=== PATIENT | female | born 1990 | race Caucasian/White ===

== ENCOUNTER 2016-09-21 07:09 | Emergency (ER) | payer MEDICAID, MEDICARE ==
[~2016-09-21] VITALS: Ht 162.6 cm; Wt 117.5 kg
[2016-09-21 07:18] VITALS: BP 137/77
--- NOTE | 2016-09-21 07:25 | NUR ---
PT TAKEN TO BED 8
--- NOTE | 2016-09-21 07:27 | NUR ---
LAB AT BEDSIDE.
--- NOTE | 2016-09-21 07:28 | NUR ---
25/F C/O VAGINAL BLEEDING X 5 DAYS. PT STATED PT HAS 5 WKS 2DAYS; DENIES ANY PAIN,SPOT PINK BLEEDING PER VAGINA TODAY. DENIES ANY MEDICAL HX. DENIES N/V/D; SKIN IS PINK/WARM/DRY; AAOX4 WITH EVEN AND STEADY GAIT; LUNGS CLEAR BL; HR EVEN AND REGULAR; PT DENIES ANY FEVER, CP, SOB, OR COUGH AT THIS TIME; PATIENT STATES PAIN OF 0/10 AT THIS TIME; VSS; PATIENT POSITIONED FOR COMFORT; HOB ELEVATED; BEDRAILS UP X2; BED DOWN. ER MD MADE AWARE OF PT STATUS. PRENANCY TEST NEGATIVE . NOTIFIED DR LOWRY.
--- NOTE | 2016-09-21 07:31 | NUR ---
25/F C/O VAGINAL BLEEDING X 5 DAYS. PT DENIES PT 5 WKS 2DAYS; DENIES ANY PAIN,SPOT PINK BLEEDING PER VAGINA TODAY.ANY MEDICAL HX.DENIES N/V/D; SKIN IS PINK/WARM/DRY; AAOX4 WITH EVEN AND STEADY GAIT; LUNGS CLEAR BL; HR EVEN AND REGULAR; PT DENIES ANY FEVER, CP, SOB, OR COUGH AT THIS TIME; PATIENT STATES PAIN OF 0/10 AT THIS TIME; VSS; PATIENT POSITIONED FOR COMFORT; HOB ELEVATED; BEDRAILS UP X2; BED DOWN. ER MADE AWARE OF PT STATUS. PRENANCY TEST NEGATIVE . NOTIFIED DR LOWRY.
--- NOTE | 2016-09-21 07:44 | NUR ---
PT TAKEN TO US VIA W/C ACCOMPANIED BY [employer].
[2016-09-21 07:45] LABS: BASOPHILS # (AUTO) 0.3 K/uL (0.00-0.22); BASOPHILS % (AUTO) 2.8 % (0.0-2.0); EOSINOPHILS # (AUTO) 0.1 K/uL (0-0.4); EOSINOPHILS % (AUTO) 0.5 % (0.0-4.0); HEMATOCRIT 37.2 % (36-48); HEMOGLOBIN 11.9 g/dL (12.0-16.0); LYMPHOCYTES # (AUTO) 2.6 K/uL (2.5-16.5); LYMPHOCYTES % (AUTO) 24.8 % (20.5-51.1); MEAN CORPUSCULAR HEMOGLOBIN 28 pg (27-31); MEAN CORPUSCULAR HGB CONC 32 g/dL (33-37); MEAN CORPUSCULAR VOLUME 89 fL (80-94); MONOCYTES # (AUTO) 0.5 K/uL (0.8-1.0); MONOCYTES % (AUTO) 4.4 % (1.7-9.3); NEUTROPHILS # (AUTO) 6.9 K/uL (1.8-7.7); NEUTROPHILS % (AUTO) 67.5 % (42.2-75.2); PLATELET COUNT (AUTO) 330 K/uL (140-450); RED BLOOD CELL COUNT(AUTO) 4.19 MIL/uL (4.20-5.40); RED CELL DISTRIBUTION WIDTH 14.1 % (11.6-13.7); WHITE BLOOD COUNT (AUTO) 10.4 K/uL (4.8-10.8)
[2016-09-21 07:54] LABS: BILIRUBIN,URINE NEGATIVE (NEGATIVE); BLOOD, URINE 2+ (NEGATIVE); COLOR,URINE YELLOW (YELLOW); LEUKOCYTE ESTERASE ,URINE NEGATIVE (NEGATIVE); NITRITE, URINE NEGATIVE (NEGATIVE); PROTEIN,URINE NEGATIVE (NEGATIVE); UGLUCOSE NEGATIVE (NEGATIVE); UROBILINOGEN,URINE 0.2 EU/dL (0.2 - 1)
[2016-09-21 07:57] LABS: ANION GAP 10.8 (8-16); CALCIUM 8.7 mg/dL (8.5-10.1); CARBON DIOXIDE 28.6 mmol/L (21-32); CREATININE 0.7 mg/dL (0.6-1.3); POTASSIUM 4.4 mmol/L (3.5-5.1)
[2016-09-21 07:58] LABS: APPEARANCE,URINE SLIGHTLY HAZY (CLEAR)
[2016-09-21 08:01] LABS: PARTIAL THROMBOPLASTIN TIME 27.9 secs (22-35.6); PROTHROMBIN TIME 10.4 secs (10.8-13.4); WBC,URINE 0-2 /HPF (0-5)
[2016-09-21 08:02] LABS: BACTERIA,URINE OCCASSIONAL /HPF (None Seen); SQUAMOUS EPITHELIAL CELL,UR 0-2 /LPF (0-3 (FEW))
[2016-09-21 08:03] LABS: ALBUMIN 3.6 g/dL (3.4-5.0); TOTAL BILIRUBIN 0.2 mg/dL (0.0-1.0); TOTAL PROTEIN, SERUM 8.7 g/dL (6.4-8.2)
--- NOTE | 2016-09-21 08:11 | NUR ---
PT BACK FROM US
--- NOTE | 2016-09-21 08:16 | NUR ---
Juan morgan in ED - 09/21/16 at 0817 by [email or web address] PT HAD BREAKFAST; NO N/V NOTED AT THIS TIME.
--- NOTE | 2016-09-21 08:16 | NUR ---
Patient appears to be resting comfortably in bed. BP 132/74; DENIES ANY HEADACHE OR DIZINESS AT THIS TIME. Respirations even and unlabored.WILL CONTINUE TO MONITOR.
--- NOTE | 2016-09-21 08:50 | NUR ---
ER MD DR LOWRY REEVALUATING PT AT BEDSIDE.
[2016-09-21 10:27] VITALS: BP 121/62
--- NOTE | 2016-09-21 10:29 | NUR ---
Patient discharged with v/s stable. Written and verbal after care instructions given and explained. Patient alert, oriented and verbalized understanding of instructions. Ambulatory with steady gait. All questions addressed prior to discharge. ID band removed. Patient advised to follow up with PMD. Rx of MATERNAL VIT LOW IRON TABLET given. Patient educated on indication of medication including possible reaction and side effects. Opportunity to ask questions provided and answered.
== END 2016-09-21 10:29 | disposition home or self-care (01) ==
LOC: MED 07:09
DX: N93.9 Abnormal uterine and vaginal bleeding, unspecified (principal); N88.8 Other specified noninflammatory disorders of cervix uteri
CPT/HCPCS: 36415; 76830; 80053; 81001; 81025; 84702; 85025; 85610; 85730; 86900; 86901; 99285; Q0092

== ENCOUNTER 2016-10-01 03:15 | Emergency (ER) | payer MEDICAID ==
[~2016-10-01] VITALS: Ht 162.6 cm; Wt 113.4 kg
[2016-10-01 03:21] VITALS: BP 128/72
--- NOTE | 2016-10-01 03:24 | NUR ---
PT TAKEN TO BED 3
--- NOTE | 2016-10-01 03:32 | NUR ---
Dr. Ramos re-evaluating patient at bedside.
--- NOTE | 2016-10-01 03:33 | NUR ---
PATIENT PRESENTS TO ED FOR BLOOD WORK . PT DENIES N/V/D; SKIN IS PINK/WARM/DRY; AAOX4 WITH EVEN AND STEADY GAIT; LUNGS CLEAR BL; HR EVEN AND REGULAR; PT DENIES ANY FEVER, CP, SOB, OR COUGH AT THIS TIME; PATIENT STATES PAIN OF 0/10 AT THIS TIME; VSS; PATIENT POSITIONED FOR COMFORT; HOB ELEVATED; BEDRAILS UP X2; BED DOWN. ER MD MADE AWARE OF PT STATUS.
--- NOTE | 2016-10-01 03:40 | NUR ---
[facility] AT BEDSIDE FOR LAB DRAWS
[2016-10-01 03:55] LABS: BASOPHILS # (AUTO) 0.4 K/uL (0.00-0.22); BASOPHILS % (AUTO) 3.6 % (0.0-2.0); EOSINOPHILS # (AUTO) 0.3 K/uL (0-0.4); EOSINOPHILS % (AUTO) 2.5 % (0.0-4.0); HEMATOCRIT 38.6 % (36-48); HEMOGLOBIN 12.2 g/dL (12.0-16.0); LYMPHOCYTES # (AUTO) 3.4 K/uL (2.5-16.5); LYMPHOCYTES % (AUTO) 32.8 % (20.5-51.1); MEAN CORPUSCULAR HEMOGLOBIN 28 pg (27-31); MEAN CORPUSCULAR HGB CONC 32 g/dL (33-37); MEAN CORPUSCULAR VOLUME 89 fL (80-94); MONOCYTES # (AUTO) 0.7 K/uL (0.8-1.0); MONOCYTES % (AUTO) 6.7 % (1.7-9.3); NEUTROPHILS # (AUTO) 5.4 K/uL (1.8-7.7); NEUTROPHILS % (AUTO) 54.4 % (42.2-75.2); PLATELET COUNT (AUTO) 345 K/uL (140-450); RED BLOOD CELL COUNT(AUTO) 4.31 MIL/uL (4.20-5.40); RED CELL DISTRIBUTION WIDTH 14.2 % (11.6-13.7); WHITE BLOOD COUNT (AUTO) 10.2 K/uL (4.8-10.8)
[2016-10-01 03:57] LABS: ANION GAP 11.3 (8-16); CALCIUM 8.4 mg/dL (8.5-10.1); CARBON DIOXIDE 27.9 mmol/L (21-32); CREATININE 0.6 mg/dL (0.6-1.3); POTASSIUM 4.2 mmol/L (3.5-5.1)
[2016-10-01 04:54] VITALS: BP 128/72
--- NOTE | 2016-10-01 04:54 | NUR ---
Patient discharged with v/s stable. Written and verbal after care instructions given and explained. Patient verbalized understanding. Ambulatory with steady gait. All questions addressed prior to discharge. Advised to follow up with PMD.
== END 2016-10-01 04:54 | disposition home or self-care (01) ==
LOC: MED 03:15
CPT/HCPCS: 36415; 80048; 84702; 85025; 99284

== ENCOUNTER 2016-12-24 03:05 | Emergency (ER) | payer MEDICAID ==
[~2016-12-24] VITALS: Ht 162.6 cm; Wt 120.2 kg
[2016-12-24 03:13] VITALS: BP 139/64
--- NOTE | 2016-12-24 03:16 | NUR ---
PT TAKEN TO BED 6
--- NOTE | 2016-12-24 03:22 | NUR ---
25 Y/O F W/C/O PT. WANTS TO F/U HCG LEVEL. LAST LMP 11/2016. PT DENIES ANY PAIN AT THE MOMENT. ER MADE AWARE.
--- NOTE | 2016-12-24 04:07 | NUR ---
Dr. Ramos evaluating patient at bedside.
[2016-12-24 04:13] VITALS: BP 139/64
== END 2016-12-24 04:13 | disposition home or self-care (01) ==
LOC: MED 03:05
DX: Z32.01 Encounter for pregnancy test, result positive (principal); Z90.89 Acquired absence of other organs
CPT/HCPCS: 36415; 84702; 99283